=== PATIENT | female | born 1985 | race Caucasian/White ===

== ENCOUNTER 2018-06-25 09:21 | Day surgery (SDC) | payer BC ==
--- NOTE | 2018-06-24 13:05 | PDGENHP ---
History and Physical History and Physical: Assessment and Plan: 1. Endometriosis of pelvic peritoneum Monica'kelby worsening pelvic pain is concerning for persistent or recurrent pelvic endometriosis. We reviewed all conservative and surgical options. At the end of our discussion she is interested in surgical removal. This will be a robotic excision of endometriosis. We discussed the pros and cons of removing her ovaries. She has given me permission to remove them if I feel it would be beneficial for long-term pain relief. 2. Pelvic pain 3. Dyspareunia in female Subjective: Patient ID: Amy aMncera is a 32 y.o. female who presents to [facility] for endometriosis. FADIA Reyes is a 32-year-old para 2 woman from [facility]. She has a long history of endometriosis. She underwent a laparoscopy in 2001 for some sort of ovarian cyst. In 2005 she underwent a laparoscopy where she was found to have endometriosis. In 2014 she underwent what sounds like a laparoscopic-assisted vaginal hysterectomy. Her wet sander saw some but not extensive endometriosis. This was not treated. Her ovaries were left in place. In 2015 she had chronic right lower quadrant pain and underwent an appendectomy by general surgeon. No mention either way of endometriosis was noted. Since then she has had worsening pain and cramping. At times she doubles over in pain. This will last several days. She uses a heating pad. She has bloating off and on throughout the day. The pain is typically in the low pelvis and not uncommonly in the right lower quadrant as well as right of the umbilicus. Before her hysterectomy she was either on control pills or . Her pain seems to have worsened since the hysterectomy. She also has deep dyspareunia. She has nausea after intercourse. She often can have pain and cramping during arousal. She also has dyschezia. She has been seen by 2 different card punching machine operator. She has undergone upper endoscopy as well as a colonoscopy which were reportedly normal. PastMedicalHistory Past Medical History: Diagnosis Date Abdominal pain Anxiety Depression Endometriosis PastSurgicalHistory Past Surgical History: Procedure Laterality Date cyst drained ENDOMETRIAL ABLATION 2005 HYSTERECTOMY LAPAROSCOPIC APPENDECTOMY 10/2015 CURRENT MEDICATIONS: Current Outpatient Medications Medication Sig FLUoxetine (PROZAC) 40 mg capsule Lactobacil 2-S.thermo-Bifido 1 (VSL#3 PO) Take by mouth daily. levothyroxine (SYNTHROID) 75 mcg tablet multivitamin (HEXAVITAMIN) per tablet Take 1 tablet by mouth daily. pantoprazole (PROTONIX) 40 mg EC tablet Take 40 mg by mouth daily. PSYLLIUM SEED, WITH SUGAR, (METAMUCIL PO) hyoscyamine sulfate (ANASPAZ, LEVSIN) 0.[address] 1-2 tablets under the tongue every 4 hours as needed (maximum of 6 tablets in 24 hours). ( Patient not taking: Reported on 03/25/2018) No current facility-administered medications for this visit. ALLERGIES: Sulfa (sulfonamide antibiotics) I have reviewed, verified and agree with the past medical, surgical, , family, social and ROS history as documented by the RN today. Objective: Vital Signs: Visit Vitals BP 110/76 Pulse 83 Temp 36.4 C (97.6 F) (Temporal) Resp 16 Ht 1.727 m (5' 8") Wt 95.6 kg (210 lb 12.8 oz) SpO2 96% BMI 32.05 kg/m Physical Exam Gen: This is an alert, well developed woman in no distress. Neuro: She moves all extremities. Psych: She is appropriate, oriented, with normal affect. Neck: No thyroid enlargement, adenopathy, or tenderness. Lungs: Clear to ascultation, no wheezes or rales. Heart: Regular rate and rhythm without obvious murmurs. Abdomen: Soft, non-tender, without guarding, rebound, or masses. Extremities: No edema or cyanosis. Pelvic: Normal external genitalia. Non-gaping introitus, vagina without discharge, adequately estrogenized, no significant prolapse. She is tender along the vaginal cuff especially the right aspect. The left uterosacral ligament is exquisitely tender. No obvious nodularity is palpable. No pelvic masses are palpable. DATA: I have reviewed the pertinent medical records. Pelvic Ultrasound: Indication: Endometriosis. Findings: The uterus is surgically absent. The ovaries appear normal sized and are somewhat obscured by the bowel. No adnexal masses cysts are seen. The adnexa are tender. Plan: Unremarkable pelvic ultrasound. TIME/COMMUNICATION: I personally spent a total of 50 minutes. Of that 35 minutes was counseling/ coordination of patient's care. See my note above for details. Amos Julian MD Board Certified Female Pelvic Medicine and Reconstructive Surgery Director of Minimally Invasive Gynecologic Surgery, [facility] Surgeon in Minimally Invasive Gynecologic Surgery [facility] Surgeon in Robotic Surgery
[~2018-06-25 09:21] MED LIST: LIDOCAINE 1% 2 ML INJ ID PRN; LR 1,000 ML IV ONE
[2018-06-25] MEDS ORDERED: GABAPENTIN 300 MG CAP PO ONE (09:35)
[2018-06-25] MEDS ORDERED: PHENAZOPYRIDINE HCL 200 MG TAB PO ONE (09:35)
[2018-06-25] MEDS ORDERED: ceFAZolin 2 GM/DEXTROSE 100 ML IV ONE (09:35)
[2018-06-25] MEDS ORDERED: ACETAMINOPHEN 500 MG TAB PO ONE (09:35)
[2018-06-25] MEDS ORDERED: LR 1,000 ML IV ONE (10:10)
[2018-06-25] MEDS ORDERED: BUPIVACAINE/EPI 0.5% 30 ML SDV ONE (10:12)
--- NOTE | 2018-06-25 10:34 | PDANEPAE ---
ANE Past Medical History - Cardiovascular History Hx Hypertension: No Hx Arrhythmias: No Hx Chest Pain: No Hx Coronary Artery / Peripheral Vascular Disease: No Hx CHF / Valvular Disease: No Hx Palpitations: No - Pulmonary History Hx COPD: No Hx Asthma/Reactive Airway Disease: No Hx Recent Upper Respiratory Infection: No Hx Oxygen in Use at Home: No Hx Sleep Apnea: No Sleep Apnea Screening Result - Last Documented: Negative - Neurologic History Neurologic History Comment: restless leg syndrome - Endocrine History Hx Diabetes: No Endocrine History Comment: hypothyroid - Renal History Hx Renal Disorders: No - Liver History Hx Hepatic Disorders: No - Neurological & Psychiatric Hx Hx Neurological and Psychiatric Disorders: Yes Neurological / Psychiatric History Comment: depression, anxiety - Cancer History Hx Cancer: No - Congenital Disorder History Hx Congenital Disorders: No - GI History Hx Gastrointestinal Disorders: Yes Gastrointestinal History Comment: irritable bowel - Other Health History Other Health History: wears glasses. endometriosis - Chronic Pain History Chronic Pain: Yes (lower abdomen) - Surgical History Prior Surgeries: hysterectomy. appendectomy. previous endometriosis surgery. cyst on right ovary drained ANE Review of Systems Review of Systems: - Exercise capacity Exercise capacity: >=4 METS METS (RN): 4 METS ANE Patient History - Allergies Allergies/Adverse Reactions: Sulfa (Sulfonamide Antibiotics) Allergy (Verified 06/25/18 09:36) Hives - Home Medications Home medications: home medication list seen and reviewed Home Medications: Adult One Daily Multivit Tab 05/06/18 [Last Taken 06/24/18] Liya Allergy 05/06/18 [Last Taken 06/24/18] Levothyroxine 05/06/18 [Last Taken 06/25/18] Lo Loestrin Fe 1-10 Tablet 05/06/18 [Last Taken 06/24/18] Melatonin 3 MG (*) 05/06/18 [Last Taken 06/18/18] Metamucil 05/06/18 [Last Taken 06/24/18] Pantoprazole Sodium 05/06/18 [Last Taken 06/25/18] Prilosec 05/06/18 [Last Taken 05/26/18] Probiotic 05/06/18 [Last Taken 06/24/18] Prozac 20 MG (*) 05/06/18 [Last Taken 06/25/18] Requip 05/06/18 [Last Taken 06/24/18] Turmeric Root Extract 05/06/18 [Last Taken 06/18/18] Vitamin B Complex 05/06/18 [Last Taken 06/18/18] Vitamin C 500 mg (*) 05/06/18 [Last Taken 06/24/18] Vitamin E 05/06/18 [Last Taken 06/18/18] Wellbutrin 150mg SR (*) 05/06/18 [Last Taken 06/24/18] - NPO status NPO Status: no food or drink >8 hours NPO Since - Liquids (Date): 06/25/18 NPO Since - Liquids (Time): 08:00 NPO Since - Solids (Date): 06/24/18 NPO Since - Solids (Time): 19:00 - Smoking Hx Smoking Status: Never smoked - Family Anes Hx Family Hx Anesthesia Complications: none ANE Labs/Vital Signs - Vital Signs Vital Signs: reviewed preoperatively; see RN documention for details Blood Pressure: 137/86 Heart Rate: 94 Respiratory Rate: 16 O2 Sat (%): 97 Height: 172.72 cm Weight: 95.254 kg ANE Physical Exam - Airway Neck exam: FROM Mallampati Score: Class 1 Mouth exam: normal dental/mouth exam - Pulmonary Pulmonary: clear to auscultation - Cardiovascular Cardiovascular: regular rate and rhythym - ASA Status ASA Status: II
--- NOTE | 2018-06-25 11:11 | PDHPUP ---
History & Physical Update H&P update statement: This history and physical update is based on an assessment of the patient which was completed after admission or registration (within 24 hours), but prior to the surgery/procedure. H&P update: H&P reviewed & patient examined, no change in patient's condition since H&P completed
[2018-06-25] MEDS ORDERED: PROPOFOL 200 MG/20 ML VIAL ONE (11:26)
[2018-06-25] MEDS ORDERED: fentaNYL 100 MCG/2 ML INJ ONE ×2 (11:26→13:32)
[2018-06-25] MEDS ORDERED: MIDAZOLAM 2 MG/2 ML VIAL IVP ONE (11:26)
[2018-06-25] MEDS ORDERED: ROCURONIUM 50 MG/5 ML VIAL ONE (11:28)
[2018-06-25] MEDS ORDERED: DEXAMETHASONE 4 MG/ML VIAL ONE (11:29)
[2018-06-25] MEDS ORDERED: BUPIVACAINE 0.5% 30 ML SDV ONE (11:30)
[2018-06-25] MEDS ORDERED: EPINEPHrine 1 MG/ML INJ ONE (11:30)
[2018-06-25] MEDS ORDERED: HYDROmorphONE/DILAUDID 2 MG/ML INJ ONE (12:08)
--- NOTE | 2018-06-25 12:28 | POSTANESTH ---
Post Anesthetic Evaluation Cardiovascular Status: Normal, Stable Respiratory Status: Normal, Stable Level of Consciousness/Mental Status: Can Participate in Eval Pain Control: Adequate, Prn Tx Ordered Nausea/Vomiting Control: Adequate, Prn Tx Ordered Complications Possibly Related to Anesthesia: None Noted
[2018-06-25] MEDS ORDERED: KETOROLAC 30 MG/1 ML SDV ONE (12:50)
[2018-06-25] MEDS ORDERED: ONDANSETRON 4 MG/2 ML VIAL ONE (12:50)
[2018-06-25] MEDS ORDERED: ALBUTEROL 3 ML DEYVIAL IH PRN (12:53)
[2018-06-25] MEDS ORDERED: MEPERIDINE 25 MG/0.5 ML AMP IVP PRN (12:53)
[2018-06-25] MEDS ORDERED: METOCLOPRAMIDE 10 MG/2 ML VIAL IVP PRN (12:53)
[2018-06-25] MEDS ORDERED: PHENYLEPHRINE HCL 100 MCG/ML SYR IVP PRN (12:53)
[2018-06-25] MEDS ORDERED: HYDROmorphONE/DILAUDID 2 MG/ML INJ IVP PRN (12:53)
[2018-06-25] MEDS ORDERED: LABETALOL HCL 20 MG/4 ML INJ IVP PRN (12:53)
[2018-06-25] MEDS ORDERED: oxyCODONE IR 5 MG TAB PO PRN (12:53)
[2018-06-25] MEDS ORDERED: LR 500 ML IV PRN (12:53)
[2018-06-25] MEDS ORDERED: ONDANSETRON 4 MG/2 ML VIAL IVP PRN (12:53)
[2018-06-25] MEDS ORDERED: NALOXONE HCL 0.4 MG/ML INJ IVP PRN (12:53)
[2018-06-25] MEDS ORDERED: DIAZEPAM 5 MG/ML 1 ML SYR IVP PRN (12:53)
[2018-06-25] MEDS ORDERED: PROMETHAZINE HCL 25 MG/ML INJ IVP PRN (12:53)
[2018-06-25] MEDS ORDERED: ACETAMINOPHEN 500 MG TAB PO PRN (12:53)
[2018-06-25] MEDS ORDERED: GLYCOPYRROLATE 0.2 MG/1 ML VIAL ONE (12:58)
[2018-06-25] MEDS ORDERED: NEOSTIGMINE METHYLSULFATE 5 MG/5 ML SYR ONE (12:58)
--- NOTE | 2018-06-25 13:22 | POSTOPPROG ---
Post Op Note Date of Operation: 06/25/18 Surgeon: Amos Julian Field Service Rep: Charline Padilla Anesthesia: GET(General Endotracheal) Pre-op Diagnosis: Endometriosis Post-op Diagnosis: Same Procedure: Robotic exision of endo, BSO, Bilat ureterolysis Findings: Endo Inf/Abcess present in the surg proc area at time of surgery?: No EBL: Minimal Complications: None
[2018-06-25] MEDS: fentaNYL 100 MCG/2 ML INJ IVP PRN ×2 (13:34→13:49)
[2018-06-25] MEDS ORDERED: oxyCODONE IR 5 MG TAB ONE (14:40)
[2018-06-25 15:04] VITALS: BP 110/74
--- NOTE | 2018-06-25 15:09 | GOP ---
DATE OF OPERATION: 06/25/2018 SURGEON: Amos Julian MD LSAT INSTRUCTOR: Charline Padilla CFA. ANESTHESIA: General. PREOPERATIVE DIAGNOSIS: 1. Endometriosis. 2. Pelvic pain. 3. Midcycle pain. POSTOPERATIVE DIAGNOSIS: 1. Endometriosis. 2. Pelvic pain. 3. Midcycle pain. 4. Ovarian cyst. PROCEDURE PERFORMED: 1. Robotic-assisted laparoscopic excision of endometriosis in anterior and posterior cul-de-sacs and bilateral pelvic sidewalls. 2. Bilateral ureterolysis. 3. Bilateral oophorectomy. FINDINGS: SPECIMENS: 1. Pelvic peritoneum with endometriosis. 1. Bilateral ovaries. 2. ESTIMATED BLOOD LOSS: Scant. DESCRIPTION OF PROCEDURE: The patient was taken to the operating room. She was identified. General anesthesia was administered and found to be adequate. She was placed in the lithotomy position and prepared and draped in the normal sterile fashion. A Tapia catheter was placed in her bladder. A 1 cm infraumbilical incision was made with a scalpel. The Veress needle with the CO2 gas flowing w as advanced into the peritoneal cavity. The abdomen was then insufflated with carbon dioxide gas. T he 12 mm trocar followed by the laparoscope were then inserted. The upper abdomen was examined. The re was no evidence of endometriosis on either diaphragm or upper abdominal bowel. Two lateral ports were placed on the right, one on the left under direct visualization. She then was placed in [place] position and the da Shanna robot docked on the left side. The instruments were brought into th e abdominal cavity under direct visualization. The pelvis was examined. There was endometriosis on each ovary. She had a left ovarian cyst. There was endometriosis as well as peritoneal windows in t he posterior cul-de-sac along the vaginal cuff at the bladder edge and laterally along both pelvic si dewalls overlying both ureters. The posterior cul-de-sac peritoneum was excised from the distal rectum up to the vaginal cuff and lat erally to the uterosacral ligaments. A bilateral ureterolysis was required. The peritoneum at the p elvic brims was incised. The ureters were gently dissected free and lateralized off the overlying pe ritoneum and endometriosis from the pelvic brim all the way down to the bladder. Once this was accom plished, the entire pelvic sidewall peritoneum was completely excised. Finally, the peritoneum overl ashlie the vaginal cuff was excised. The infundibulopelvic vessels were skeletonized bilaterally. They were then coagulated and transecte d. All specimens were left in the pelvis for removal at the conclusion of the case. The pelvis was irrigated with sterile saline, and hemostasis was present. The robot was then undocked. The specime ns were then removed. The fascia was closed with 0 Vicryl, skin with 4-0 Monocryl. Anesthesia was r eversed. The patient taken to PACU awake in stable condition. COMPLICATIONS: None. DISPOSITION: Patient stable to PACU. /[id number]/MODL
== END 2018-06-25 15:20 | disposition home or self-care (01) ==
LOC: FSGY 09:21
PROVIDERS: ATTEND Obstetrics & Gynecology
DX: N80.3 Endometriosis of pelvic peritoneum (principal); R10.2 Pelvic and perineal pain; N94.10 Unspecified dyspareunia; F32.9 Major depressive disorder, single episode, unspecified; F41.9 Anxiety disorder, unspecified; Z90.710 Acquired absence of both cervix and uterus
CPT/HCPCS: J0171; J0690; J1100; J1170; J1885; J2250; J2405; J2704; J2710; J3010